=== PATIENT | male | born 1935 | race Caucasian/White ===

== ENCOUNTER 2025-01-15 06:08 | Day surgery (SDC) | payer MEDICARE, OTHER ==
[~2025-01-15] VITALS: Ht 172.7 cm; Wt 73.4 kg
[~2025-01-15 06:08] MED LIST: AMLO2.5T3 PO; BIOT1CAP2 PO; CENT1TAB2 PO; ROSU5TAB49 PO
[2025-01-15] MEDS: LR 1,000 ML IV SCH (07:15)
[2025-01-15] MEDS ORDERED: LIDOCAINE 2% 100 MG/5 ML SDV (FOR ANES.) As Ordered ONE (07:20)
[2025-01-15] MEDS ORDERED: dexAMETHasone 4 MG/ML 1 ML VIAL As Ordered ONE (07:20)
[2025-01-15] MEDS ORDERED: ONDANSETRON 4MG 2ML VIAL As Ordered ONE (07:20)
[2025-01-15] MEDS ORDERED: MIDAZOLAM INJ 2 MG/2 ML VIAL As Ordered ONE (07:21)
[2025-01-15] MEDS: ceFAZolin SOD 2 GM IV ONCE IV ONE (08:10)
[2025-01-15] MEDS: POLYSPORIN OPHTH OINT 3.5 GM As Ordered ONE (08:11)
[2025-01-15] MEDS: TETRACAINE 0.5% OPHTH SOLN 4ML As Ordered ONE (08:11)
[2025-01-15] MEDS ORDERED: dexmedeTOMIDine (4 MCG/ML) 200 MCG/50 ML BTL As Ordered ONE (08:23)
[2025-01-15] MEDS ORDERED: ACETAMINOPHEN 1000MG/100ML IV BAG As Ordered ONE (08:38)
[2025-01-15] MEDS: LIDOCAINE 2% W/EPINEPHrine 20 ML VIAL **PRES FREE As Ordered ONE (08:51)
[2025-01-15] MEDS ORDERED: ONDANSETRON 4MG 2ML VIAL IV PRN (09:05)
[2025-01-15 10:45] VITALS: BP 159/70; TEMP 96.9; O2SAT 96
== END 2025-01-15 10:50 | disposition home or self-care (01) ==
LOC: M SDC 06:08
PROVIDERS: ATTEND Plastic Surgery Surgery of the Hand
DX: H02.831 Dermatochalasis of right upper eyelid (principal); H02.834 Dermatochalasis of left upper eyelid; I10 Essential (primary) hypertension; M19.90 Unspecified osteoarthritis, unspecified site; Z79.899 Other long term (current) drug therapy
CPT/HCPCS: 15822; 88300; J0131; J0690; J1100; J2405; J3010